=== PATIENT | female | born 1995 | race Two or more races ===

== ENCOUNTER 2017-04-01 10:29 | Emergency (ER) | payer OTHER ==
[~2017-04-01] VITALS: Ht 160 cm; Wt 86.2 kg
[~2017-04-01 10:29] MED LIST: AMOX1TAB12 PO; TUSSI PRES-B L120 M1 PO
== END 2017-04-01 17:37 | disposition home or self-care (01) ==
LOC: ER 10:29
DX: K29.70 Gastritis, unspecified, without bleeding (principal)

== ENCOUNTER 2020-05-22 09:21 | Emergency (ER) | payer OTHER ==
[~2020-05-22] VITALS: Ht 160 cm; Wt 95.7 kg
[2020-05-22] MEDS ORDERED: PRENATAL + DHA1 EAC1 (09:28)
== END 2020-05-22 14:40 | disposition home or self-care (01) ==
LOC: ER 09:21
DX: O21.8 Other vomiting complicating pregnancy (principal); Z3A.10 10 weeks gestation of pregnancy; Z20.822 Contact with and (suspected) exposure to COVID-19

== ENCOUNTER 2020-07-26 15:59 | Emergency (ER) | payer OTHER ==
[~2020-07-26] VITALS: Ht 160 cm; Wt 95.7 kg
[~2020-07-26 15:59] MED LIST changes: +PRENATAL + DHA1 EAC1
[2020-07-26] MEDS ORDERED: ADULT ASPIRIN R81 MG PO (17:09)
== END 2020-07-26 20:40 | disposition home or self-care (01) ==
LOC: ER 15:59
DX: O26.892 Other specified pregnancy related conditions, second trimester (principal); R00.0 Tachycardia, unspecified; Z34.02 Encounter for supervision of normal first pregnancy, second trimester

== ENCOUNTER 2020-10-13 11:36 | Outpatient (CLI) | payer OTHER ==
[~2020-10-13 11:36] MED LIST changes: +ADULT ASPIRIN R81 MG PO
== END 2020-10-13 14:21 | disposition home or self-care (01) ==
LOC: OBS/DEL 11:36
PROVIDERS: ATTEND Specialist
DX: O26.893 Other specified pregnancy related conditions, third trimester (principal); R10.2 Pelvic and perineal pain; Z3A.30 30 weeks gestation of pregnancy

== ENCOUNTER 2020-12-10 20:21 | Outpatient (CLI) | payer OTHER | END 2020-12-10 22:19 | disposition home or self-care (01) | LOC: NST 20:21 → OBS/DEL 20:21 → NST 22:19 | PROVIDERS: ATTEND Specialist | DX: Z34.83 Encounter for supervision of other normal pregnancy, third trimester (principal) ==

== ENCOUNTER 2020-12-15 14:00 | Inpatient (IN) | payer OTHER ==
[~2020-12-15] VITALS: Ht 160 cm; Wt 3.2 kg
== END 2020-12-23 15:10 | disposition home or self-care (01) | DRG 788 ==
LOC: OB/GYN 12-17 15:00 → LDR 12-20 06:16 → OB/GYN 12-20 06:16
PROVIDERS: ADMIT Specialist; ATTEND Specialist
PROC: 3E0P7VZ Introduction of Hormone into Female Reproductive, Via Natural or Artificial Opening (ICD-10-PCS; 2020-12-20)
PROC: 4A1HXFZ Monitoring of Products of Conception, Cardiac Rhythm, External Approach (ICD-10-PCS; 2020-12-20)
PROC: 10D00Z1 Extraction of Products of Conception, Low, Open Approach (ICD-10-PCS; principal; 2020-12-20 14:00)
DX: O65.8 Obstructed labor due to other maternal pelvic abnormalities (principal); O48.0 Post-term pregnancy; Z3A.40 40 weeks gestation of pregnancy; Z37.0 Single live birth

== ENCOUNTER 2021-01-03 00:17 | Emergency (ER) | payer OTHER ==
[~2021-01-03] VITALS: Ht 160 cm; Wt 93.0 kg
== END 2021-01-03 09:09 | disposition home or self-care (01) ==
LOC: ER 00:17
DX: K80.20 Calculus of gallbladder without cholecystitis without obstruction (principal); K59.09 Other constipation; R10.84 Generalized abdominal pain

== ENCOUNTER 2021-01-13 19:23 | Emergency (ER) | payer OTHER ==
[~2021-01-13] VITALS: Ht 160 cm; Wt 88.0 kg
== END 2021-01-13 21:40 | disposition home or self-care (01) ==
LOC: ER 19:23
DX: K80.50 Calculus of bile duct without cholangitis or cholecystitis without obstruction (principal)